=== PATIENT | female | born 1955 | race Caucasian/White ===

== ENCOUNTER 2024-11-07 20:01 | Inpatient (IN) | payer MEDICARE, OTHER, SELFPAY ==
[2024-11-07 11:30] VITALS: BP 133/88
[2024-11-07 11:45] LABS: % Basophils 0.7 % (0-2); % Eosinophils 1.3 % (0-6); % Immature Granulocytes 0.3 % (0-0.5); % Lymphocytes 16.4 % (20.5-51.1); % Monocytes 4.9 % (1.7-9.3); % Neutrophils 76.4 % (42.2-75.2); Absolute Basophils 0.1 10^3/uL (0-0.2); Absolute Eosinophils 0.1 10^3/uL (0-0.7); Absolute Lymphocytes 1.4 10^3/uL (1.2-3.4); Absolute Monocytes 0.4 10^3/uL (0.1-0.6); Absolute Neutrophils 6.7 10^3/uL (1.4-6.5); Hematocrit 34.4 % (37.0-47.0); Hemoglobin 11.3 g/dL (12.0-16.0); Mean Corp Hgb Conc. 32.8 g/dL (33.0-37.0); Mean Corpuscular Hgb 30.7 pg (27.0-31.0); Mean Corpuscular Volume 93.5 fL (81.0-99.0); Mean Platelet Volume 10.5 fL (7.4-10.4); Nucleated Red Blood Cells % 0 %; Platelet Count 259 10^3/uL (130-400); Red Blood Cell Count 3.68 10^6/uL (4.20-5.40); Red Cell Dist. Width 13.5 % (11.5-14.5); White Blood Cell Count 8.8 10^3/uL (4.8-10.8)
[2024-11-07 12:02] LABS: ALT (SGPT) 29 U/L (0-35); AST (SGOT) 27 U/L (14-36); Albumin 4.5 g/dl (3.5-5.0); Alkaline Phosphatase 111 U/L (38-126); Blood Urea Nitrogen 27 mg/dl (7-17); Calcium 9.7 mg/dl (8.4-10.2); Carbon Dioxide 25 mmol/L (22-30); Chloride 103 mmol/L (98-107); Glucose 197 mg/dl (70-99); Potassium 4.9 mmol/L (3.5-5.1); Sodium 139 mmol/L (135-145); Total Bilirubin 0.6 mg/dl (0.2-1.3); Total Protein 7.1 g/dl (6.3-8.2); eGFR 54.06
[2024-11-07 12:10] LABS: Troponin I < 0.012 ng/ml
[2024-11-07] MEDS: MAALOX 40 PO (15:28)
--- NOTE | 2024-11-07 15:45 | ED.GENMED ---
History of Present Illness
General
Chief Complaint: Chest Pain
Source: patient
Exam Limitations: none
Time Seen by Provider: 11/07/24 13:45
Nursing documentation reviewed up to this point in time: agreed with
History of Present Illness
History of Present Illness:
Patient with history of GERD on Prilosec, presents to ED after waking up from sleep around 4 AM secondary to midsternal discomfort. Patient reports having had no symptoms when she went to sleep. Patient had pizza for dinner with vegetable
toppings. Chest discomfort described as pressure, nonradiating, without any exacerbating or alleviating factors. Denies nausea or vomiting. Denies shortness of breath. Denies dizziness. Denies recent change in medications or diet. Denies
recent illness. Denies previous history of similar symptoms. As patient is diabetic, patient reports having had muffins prior to administering insulin, which made her symptoms worse.
Review of Systems
Review of Systems
Allergies reviewed?: Yes
All Other Systems: ROS reviewed and negative except as documented in HPI and ROS
Constitutional: Reports no symptoms; Denies fever
EENT: Reports no symptoms
Respiratory: Reports no symptoms; Denies trouble breathing
Cardiac: Reports chest pain
ABD/GI: Reports abdominal pain; Denies vomiting or diarrhea
: Reports no symptoms
Musculoskeletal: Reports no symptoms
Skin: Reports no symptoms
Neurological: Reports no symptoms
Phy Exam
Physical Exam
Physical Exam:
Physical Exam
General: no apparent distress, not acutely ill. afebrile
Head: nc/at. eomi
Neck: supple. no meningeal signs
Heart: s1/s2 regular rate and rhythm, no murmur.
Lungs: no acute respiratory distress. clear bilaterally. chest wall nontender to palpation.
Abdomen: normal bowel sounds. mild epigastric tenderness to palpation.
Neuro: alert and oriented x 3. no focal neurological deficits
Skin: no rash
Psychiatric: well kept. interactive and cooperative
Extremities: no edema. no calf tenderness.
Scores
Heart Score for Chest Pain Patients
STEMI patient?: Not applicable
Course
Orders/Labs/Results
Orders:
Orders
11/07/24 11:32
Electrocardiogram (*1) Urgent
Reason for Study: Chest Pain
EKG- Treatment ONCE
11/07/24 11:36
Complete Blood Count/With Diff Urgent
Comprehensive Metabolic Panel Urgent
Lipase Urgent
Comment: ADD ON
Troponin I Urgent
11/07/24 Dinner
NPO
Allow oral meds: Yes
Allow clear liquids: No
11/07/24 15:22
Mag Hydrox/Al Hydrox/Simeth [Maalox] 30 ml Phenobarb/Hyoscy/Atropine/Scop [] 10 ml PO NOW
US Abdomen Complete/Upper Urgent
Comment:
Reason For Exam: epigastric pain
11/07/24 15:26
Mag Hydrox/Al Hydrox/Simeth [Maalox] 30 ml .ROUTE .STK-MED ONE
Phenobarb/Hyoscy/Atropine/Scop [] 10 ml .ROUTE .STK-MED ONE
11/07/24 17:50
0.9% Sodium Chloride 500 ml [Nss] 500 ml IV BOLUS
HYDROmorphone [Dilaudid] 0.5 mg IV NOW STA
Piperacillin/Tazo 3.375 Gram [Zosyn] 3.375 gram in 50 ml IV NOW
11/07/24 19:28
Admit/Transfer Patient As Directed
Co-Sign Provider:
Level of Care: Inpatient admission
Assign to:: Medical/Surgical
Physician / Group: Vladislav Laurent
Diagnosis: Acute calculus cholecystitis
Reason for Hospitalization: Acute calculus cholecystitis
Expected length of stay greater than two midnights?: Yes
ELOS- Estimated Length of Stay in days: 3
I certify the patient meets the requirements for IP care: Yes
PRN Pain Medication Management As Directed
May give lesser potent ordered pain med per pt: Yes
preference::
Protocol:: Medication orders for pain may be administered in a
manner that supports deferring to patient preference
when the pt is:
- Requesting an ordered lesser potent pain medication.
Least to most potent pain medications are defined
as: acetaminophen < NSAID < tramadol < opioids
(morphine, oxycodone, hydromorphone).
- Requesting a lesser dose of the same medication IF
ORDERED.
- Requesting a less intrusive route of administration
if both routes are prescribed by the provider (PO <
IV).
11/07/24 19:31
Code Status As Directed
Resuscitation Status: Full Code
11/07/24 22:10
0.9% Sodium Chloride 1000 ml [Nss] 1,000 ml IV 80 mls/hr
Acetaminophen [Tylenol] 650 mg PO Q4HPRN PRN
HYDROmorphone [Dilaudid] 0.5 mg IV Q2HPRN PRN
Ondansetron Injectable [Zofran] 4 mg IV Q6HPRN PRN
Rosuvastatin Calcium [Crestor] 10 mg PO HS
11/07/24 22:10
SURGICAL CONSULT Routine
Consulting Provider: Bartolo Good
Was physician already notified: Yes
Activity As Directed
Activity Level: Out of Bed-Early Mobility
Intake/ Output As Directed
Frequency: Per unit guidelines
Pneumatic Compression Sleeves As Directed
Type: Knee high
Vital Signs As Directed
Frequency: Per unit guidelines
Weight As Directed
Frequency: Once
DX Deep Vein Thrombosis Video Routine
11/08/24 06:00
Complete Blood Count/No Diff IN AM
Comprehensive Metabolic Panel IN AM
11/08/24 08:00
Aspirin Low Dose EC [Aspir Low (Enteric Coated)] 81 mg PO DAILY
Losartan [Cozaar] 100 mg PO DAILY
Abnormal Lab Results
11/07/24 11/07/24
11:36 18:23
RBC 3.68 L 10^6/uL
(4.20-5.40)
Hgb 11.3 L g/dL
(12.0-16.0)
Hct 34.4 L %
(37.0-47.0)
MCHC 32.8 L g/dL
(33.0-37.0)
MPV 10.5 H fL
(7.4-10.4)
Absolute Neuts (auto) 6.7 H 10^3/uL
(1.4-6.5)
Neutrophils % 76.4 H %
(42.2-75.2)
Lymphocytes % 16.4 L %
(20.5-51.1)
BUN 27 H mg/dl
(7-17)
Creatinine 1.1 H mg/dL
(0.6-1.0)
Glucose 197 H mg/dl
(70-99)
POC Glucose 112 H mg/dl
(70-99)
11/07/24 11:36
11/07/24 11:36
Vital Signs
Initial and Last Documented VS:
Initial Vital Signs
Temp Pulse Resp BP Pulse Ox
97.5 F 85 18 133/88 99
11/07/24 11:30 11/07/24 11:30 11/07/24 11:30 11/07/24 11:30 11/07/24 11:30
Last Documented Vital Signs
Temp Pulse Resp BP Pulse Ox
98.0 F 86 18 156/70 97
11/07/24 23:00 11/07/24 23:00 11/07/24 23:00 11/07/24 23:00 11/07/24 23:00
MDM/Problems Addressed
MDM/Problems Addressed:
US abdomen report reviewed with on-call surgery, , who recommends admission on hospitalist service for further workup, including starting abx, zosyn.
*Critical Care Note
Total Time (30-74mins, 75-104mins- exclusive of procedures): Not Applicable
ED Attending Note
-
Portions of this chart may have been created with voice recognition software.� Occasional wrong word or��sound alike� substitutions may have occurred due to the inherent limitations of voice recognition software.
Discharge Plan
Departure
Patient Disposition: Admit
Date of Disposition: 11/07/24
Time of Disposition: 17:52
Admit to: Med/Surg
Presentation/result/management discussed w/ accepting MD/DO: Hospitalist
Discharge Problem:
Acute cholecystitis
Interventions
Interventions:
*Risk Screen - Suicide Last Done: 11/07/24 11:30
*General Assessment Last Done: 11/07/24 11:30
*Neglect/Abuse Screening Last Done: 11/07/24 11:30
*ED COVID-19 Vaccine History Last Done: 11/07/24 11:30
*Nursing Disposition Last Done: 11/07/24 22:04
ED- Cardiac Assessment Last Done: 11/07/24 14:55
Discharge Date and Time
Discharge Date/Time: 11/07/24 22:04
[2024-11-07 16:27] LABS: Lipase 72 U/L (23-300)
[2024-11-07 17:17] VITALS: BP 167/87
[2024-11-07] MEDS: DILAUDID 0.5 MG IV (17:55)
[2024-11-07] MEDS: ZOSYN 50 IV (17:55)
[2024-11-07] MEDS: NSS 500 IV (17:56)
[2024-11-07 18:24] LABS: Glucose - Point of Care 112 mg/dl (70-99)
--- NOTE | 2024-11-07 18:35 | HPS.HSE ---
Family Physician
-
Family Physician: Kinza Wilkes
Chief Complaint
-
GERD
History of Present Illness
Patient is a 68-year-old female with past medical history significant for hypertension, hyperlipidemia, GERD, chronic kidney disease II and DM II who presented to [facility] ED for evaluation of midsternal chest discomfort that woke her from a sleep
at approximately 0430 and has not alleviated. Patient states this is first time shes ever experienced this and reports it does not radiate. She denies any fever, chills, nausea, vomiting, constipation, diarrhea or urinary symptoms.
Medical History
Past Medical History
Past Medical History: Reports Other
Additional Past Medical History:
hypertension
hyperlipidemia
GERD
DM II
chronic kidney disease II
Past Surgical History: Reports Other
Additional Past Surgical History:
elbow fx repair
cataract extraction
oral surgery
Social History
Tobacco: Non-smoker
Alcohol: Occasional
Drug: None
Personal: Partner
Living: With Roomate (with partner)
Employment: Retired
Family History
Family History: Not pertinent
Allergies / Home Medications
Allergies reflects when Allergies were last updated in [email or web address].
Home Medications with original date entered in [email or web address]
Allergy/Medication List:
Allergies
Allergy/AdvReac Type Severity Reaction Status Date / Time
No Known Allergies Allergy Unverified 11/07/24 11:32
Home Medications
aspirin 81 mg tablet,delayed release 81 mg PO DAILY 11/07/24
insulin glargine 100 unit/mL (3 mL) subcutaneous pen (Lantus Solostar U-100 Insulin) 46 unit SC DAILY 11/07/24
insulin lispro 100 unit/mL subcutaneous pen (Humalog KwikPen (U-100) Insulin) 0 sliding scale dose SC AC 11/07/24
losartan 100 mg tablet 100 mg PO DAILY 11/07/24
metformin 1,000 mg tablet 1,000 mg PO DAILY 11/07/24
metformin 1,000 mg tablet 500 - 1,000 mg PO QPM 11/07/24
rosuvastatin 10 mg tablet 10 mg PO HS 11/07/24
Review of Systems
-
History Source: Patient
A 12 point ROS was completed and negative except as noted: Yes
Constitutional: Reports Sleep Disturbance
EENT: Reports No Symptoms
Respiratory: Reports No Symptoms
Cardiac: Reports No Symptoms
Abdomen/GI: Reports Other (midsternal discomfort with epigastric discomfort )
: Reports No Symptoms
Musculoskeletal: Reports No Symptoms
Skin: Reports No Symptoms
Neurological: Reports No Symptoms
Endocrine: Reports No Symptoms
Hematologic/Lymphatic: Reports No Symptoms
Psych: Reports No Symptoms
Physical Exam
Vital Signs
Vital Signs
Temp Pulse Resp BP Pulse Ox
97.5 F 80 22 167/87 99
11/07/24 11:30 11/07/24 17:30 11/07/24 17:30 11/07/24 17:17 11/07/24 15:15
Physical Exam
General: Well Developed, Well Nourished, No Apparent Distress, Comfortable, Conversant and Morbidly Obese
HEENT: NormoCephalic, Moist mucous membranes, Atraumatic, PERRLA, [place] Conjunctivae, Nose Appears Normal and Ears Appear Normal
Respiratory: Clear and Non Labored Respirations
Cardiac: S1/S2 and Regular Rhythm; No Murmur, Rub or Gallop
Breast: Deferred by me
GI: Soft, Non Tender, Non Distended and Normal Bowel Sounds; No Organomegaly
Rectal: Deferred by Provider
Genito-urinary: Deferred by me
Musculoskeletal: No Clubbing, No Cyanosis and No Edema
Skin: Warm and IV/Catheter Site; No Rash
Neuro: Awake, Alert, AO x 3 and Nonfocal/grossly intact
Hematologic/Lymphatic: No Lymphadenopathy
Psych: Calm and Intact Judgment/Insight
Laboratory Results
-
11/07/24 11:36
11/07/24 11:36
Laboratory Results
Total Bilirubin 0.6 mg/dl (0.2-1.3) 11/07/24 11:36
AST 27 U/L (14-36) 11/07/24 11:36
ALT 29 U/L (0-35) 11/07/24 11:36
Alkaline Phosphatase 111 U/L (38-126) 11/07/24 11:36
Troponin I < 0.012 ng/ml 11/07/24 11:36
Lipase 72 U/L (23-300) 11/07/24 11:36
Data Reviewed
-
Ultrasound: Report Reviewed by me (Abd: 1. Cholelithiasis, gallbladder distention, and diffuse gallbladder wall thickening suggesting ACUTE CALCULUS CHOLECYSTITIS. 2. No sonographic evidence for biliary obstruction. 3. Moderate diffuse liver
disease (probably diffuse hepatic steatosis). )
Medical Tests (Nuc Med, Echo, EKG etc): Discussed with Physician (EKG: NORMAL SINUS RHYTHM WITH SINUS ARRHYTHMIA)
Lab Data: Labs Reviewed by me
Impression/Plan
-
IMPRESSION/PLAN:
#Acute calculus cholecystitis
Abd US: 1. Cholelithiasis, gallbladder distention, and diffuse gallbladder wall thickening suggesting ACUTE CALCULUS CHOLECYSTITIS.
2. No sonographic evidence for biliary obstruction.
3. Moderate diffuse liver disease (probably diffuse hepatic steatosis).
- Admit to med/surg
- consult surgery
- IVF
- Zosyn
- pain regimen
- antiemetics
#benign hypertension
- continue losartan
#hyperlipidemia
- continue rosuvastatin
#DM II
- AccuChecks AC & HS
- SSI
- hold Lantus
- hold metformin
#chronic kidney disease II
BUN 27, Creat 1.1
#GERD
Code Status: Full Code
DVT Prophylaxis: SCDs
[2024-11-07 19:00] VITALS: BP 173/68
--- NOTE | 2024-11-07 19:27 | W.PN.UPDATE ---
Update Note
Progress Note Update
This is an addendum to the H&P written by Lashanda Deras on 11/07/2024. Patient seen and examined independently with NIGHT SHIFT MANAGER.
68-year-old female past medical history of GERD, diabetes, hypertension, hyperlipidemia, presenting with midsternal discomfort fibrous pressure nonradiating. No nausea or vomiting. No shortness of breath.
She is tender in the epigastric region. Some tenderness in the right upper quadrant with deep palpation.
Abdominal ultrasound shows cholelithiasis, diffuse gallbladder wall thickening suggesting acute calculus cholecystitis. Labs unremarkable apart from mild HIRAM.
N.p.o., IV fluids. Zosyn. General surgery consulted. Hold metformin and Lantus for now. Insulin sliding scale. Can introduce reduced dose of Lantus if she becomes hyperglycemic later.
[2024-11-07 20:00] VITALS: BP 154/48
[2024-11-07] MEDS: NSS 1000 IV (22:29)
[2024-11-07] MEDS: TYLENOL 650 MG PO (22:30)
[2024-11-07] MEDS: CRESTOR 10 MG PO (22:30)
[2024-11-07 23:00] VITALS: BP 156/70
[2024-11-08] VITALS (10 sets, daily range): BP systolic 104–162; BP diastolic 53–92
[2024-11-08] LABS: Glucose - Point of Care 168 mg/dl (70-99)
[2024-11-08 06:36] LABS: Glucose - Point of Care 119 mg/dl (70-99)
[2024-11-08 08:41] LABS: ALT (SGPT) 31 U/L (0-35); AST (SGOT) 37 U/L (14-36); Albumin 4.3 g/dl (3.5-5.0); Alkaline Phosphatase 115 U/L (38-126); Blood Urea Nitrogen 19 mg/dl (7-17); Calcium 9.2 mg/dl (8.4-10.2); Carbon Dioxide 24 mmol/L (22-30); Chloride 104 mmol/L (98-107); Glucose 124 mg/dl (70-99); Sodium 139 mmol/L (135-145); Total Bilirubin 0.7 mg/dl (0.2-1.3); Total Protein 6.8 g/dl (6.3-8.2); eGFR > 60.00
[2024-11-08] MEDS: NOVOLOG FLEXPEN-LOW RESISTANCE SC ×2 (08:51→11:30)
[2024-11-08] MEDS: ASPIR LOW (ENTERIC COATED) 81 MG PO (08:52)
[2024-11-08] MEDS: COZAAR 100 MG PO (08:52)
--- NOTE | 2024-11-08 08:52 | CON.GS ---
Medical History
-
Chief Complaint: GERD/substernal chest pain
History of Present Illness:
Patient is a 68-year-old female who was in her usual baseline state of health until she awoke yesterday at approximately 4:30 AM with substernal chest pain/pressure. It persisted through the morning hours with some mild associated anorexia/nausea
prompting emergency department evaluation yesterday. Persistent 'heartburn' discomfort today and radiation of pain into the central back area. Appetite still suppressed. No vomiting. No recent change in bowels.
Past Medical History
Past Medical History: Other (Hypertension, hyperlipidemia, GERD, DM type II, CKD type II)
Past Surgical History: Other (Elbow fracture, cataracts, oral surgery)
Social History
Tobacco: Non-Smoker
Alcohol: Occasional
Personal: Partner
Living: With Roomate
Employment: Retired
Allergies / Home Medications
Allergy/AdvReac Type Severity Reaction Status Date / Time
No Known Allergies Allergy Unverified 11/07/24 11:32
�Medication �Instructions �Recorded �Confirmed �Type
aspirin 81 mg tablet,delayed 81 mg PO DAILY 11/07/24 11/07/24 History
release
insulin glargine 100 unit/mL (3 46 unit SC DAILY 11/07/24 11/07/24 History
mL) subcutaneous pen (Lantus
Solostar U-100 Insulin)
insulin lispro 100 unit/mL 0 sliding scale dose SC AC 11/07/24 11/07/24 History
subcutaneous pen (Humalog KwikPen
(U-100) Insulin)
losartan 100 mg tablet 100 mg PO DAILY 11/07/24 11/07/24 History
metformin 1,000 mg tablet 1,000 mg PO DAILY 11/07/24 11/07/24 History
metformin 1,000 mg tablet 500 - 1,000 mg PO QPM 11/07/24 11/07/24 History
rosuvastatin 10 mg tablet 10 mg PO HS 11/07/24 11/07/24 History
Review of Systems
-
A 10 point review of systems was completed, and was negative except as per HPI.
Physical Exam
Vital Signs
Temp Pulse Resp BP Pulse Ox
98.0 F 81 14 161/76 99
11/08/24 07:32 11/08/24 07:32 11/08/24 07:32 11/08/24 07:32 11/08/24 07:32
11/07/24 11/08/24 11/09/24
06:59 06:59 06:59
Actual Weight 122.47 kg
Lab Results
11/08/24 06:38
WBC 8.8 10^3/uL (4.8-10.8) 11/07/24 11:36
Hgb 11.3 g/dL (12.0-16.0) L 11/07/24 11:36
Hct 34.4 % (37.0-47.0) L 11/07/24 11:36
Plt Count 259 10^3/uL (130-400) 11/07/24 11:36
Abs Immat Gran (auto) 0.0 10^3/uL (0-0.05) 11/07/24 11:36
Neutrophils % 76.4 % (42.2-75.2) H 11/07/24 11:36
Physical Exam
General: Well Developed, Well Nourished, No Apparent Distress and Comfortable
HEENT: Normocephalic, Anicteric and Moist Mucous Membranes
Respiratory: Non Labored Respirations
GI: Soft, Non Distended and Tender (Epigastrium and right upper quadrant with voluntary guarding in the right upper quadrant on deep palpation)
Skin: Warm and Dry
Neuro: AO x 3
Psych: Calm
Assessment / Plan
-
Assessment: 68-year-old female with probable acute calculus cholecystitis -with resultant intractable epigastric abdominal pain/localizing right upper quadrant tenderness.
Ultrasound imaging personally reviewed confirms multiple shadowing gallstones, gallbladder distention, diffuse wall thickening and edema. LFTs only notable for slight elevation of AST today. Lipase was normal in the emergency department testing.
Troponin negative.
Reviewed with patient indications for cholecystectomy in the setting of persistent symptoms and probable cystic duct obstruction with resultant acute calculus cholecystitis. We discussed alternative treatment options as well. Patient in agreement
to proceed with a laparoscopic cholecystectomy possible intraoperative cholangiogram. Anticipated operative procedure was fully reviewed in detail including the operative technique utilizing a diagram and drawling. We discussed potential benefits
and risks such as but not limited to bleeding, infectious and wound related complications, iatrogenic injury to surrounding structures, bile duct injury, postop bile leak, postcholecystectomy syndrome/fatty food intolerances. We discussed the
typical postoperative recovery pending operative findings.
Any of the patient's concerns or questions were fully addressed and written informed consent was obtained.
Plan: Patient is on the add on OR schedule for lap vidhya possible cholangiogram today -await room availability
N.p.o.
IV fluids
Reordered/continue Zosyn -initial given emergency department 11/07/2024
[2024-11-08] MEDS: TYLENOL 650 MG PO (08:58)
[2024-11-08 09:10] LABS: Hematocrit 34.3 % (37.0-47.0); Hemoglobin 11.6 g/dL (12.0-16.0); Mean Corp Hgb Conc. 33.8 g/dL (33.0-37.0); Mean Corpuscular Volume 91.7 fL (81.0-99.0); Platelet Count 204 10^3/uL (130-400); Red Blood Cell Count 3.74 10^6/uL (4.20-5.40); Red Cell Dist. Width 13.4 % (11.5-14.5); White Blood Cell Count 9.6 10^3/uL (4.8-10.8)
[2024-11-08 09:37] LABS: Glycohemoglobin (HgbA1c) 7.2 % (4.0-5.6)
--- NOTE | 2024-11-08 09:48 | CM ---
CM reviewed medical records. Patient for OR today. CM will remain available as needed.
[2024-11-08] MEDS: ZOSYN 50 IV ×3 (10:33→22:07)
[2024-11-08] MEDS: NSS 1000 IV (10:39)
--- NOTE | 2024-11-08 10:52 | W.PN.HOSP.TC ---
Today's Communication/Plan
-
Assessment / Plan
Assessment / Plan
Acute calculus cholecystitis
-N.p.o.
-IV antibiotics
-Plan for OR with surgery later today
Diabetes
-Hold long-acting insulin
-Continue sliding scale
-N.p.o.
-Postoperative can start carb controlled diet and initiate Lantus
Hyperlipidemia
-Continue statin
Anticipated Discharge: 24 - 48 hours
Subjective/Interval History
-
Date of Service: November 08, 2024
seen and examined
ruq pain resolved, but now with back pain
no nv
Objective Data
-
Labs:
Laboratory Results
11/08/24
06:38
WBC 9.6
Hgb 11.6 L
Hct 34.3 L
Plt Count 204 D
Sodium 139
Potassium 4.0
Chloride 104
Carbon Dioxide 24
BUN 19 H
Creatinine 0.9
Glucose 124 H
Calcium 9.2
Total Bilirubin 0.7
AST 37 H
ALT 31
Alkaline Phosphatase 115
Vital Signs:
Vital Signs
Temp Pulse Resp BP Pulse Ox
98.0 F 81 14 161/76 99
11/08/24 07:32 11/08/24 07:32 11/08/24 07:32 11/08/24 07:32 11/08/24 07:32
I&O
11/07/24 11/08/24 11/09/24
06:59 06:59 06:59
Intake Total 720 / 720
Balance 720 / 720
Physical Exam
-
General: Well Developed and Well Nourished
HEENT: Normocephalic and Atraumatic
Respiratory: Clear to Auscultation
Cardiac: Regular Rhythm
GI: Soft, Nondistended, Normal Bowel Sounds and Tender (RUQ on deep palpation)
Neuro: Awake, Alert, Oriented and AO x 3
Psych: Calm
--- NOTE | 2024-11-08 12:42 | W.SUR.PREOP ---
Pre-Operative Surgical Note
-
I have examined this patient prior to the performance of the scheduled procedure.
The patient's condition is unchanged from the time of the current History and
Physical and the patient is able to undergo the scheduled procedure.
--- NOTE | 2024-11-08 14:26 | W.IMMPOSTOP ---
Addendum entered and electronically signed by Rei Villarreal MD 11/08/24 14:47:
#[id number]
Original Note:
Surgical Immed Post Op Note
-
Primary Surgeon: Rei Villarreal MD
Assisting Surgeon: Axel Simms MD PGY 1
Pre-op Diagnosis: Acute calculus cholecystitis
Post-op Diagnosis: Acute calculus cholecystitis with cystic duct obstruction/hydrops
Procedure Performed: Laparoscopic cholecystectomy
Anesthesia Type: GETA +0.25% Marcaine
Specimen / Cultures: Gallbladder/none
Estimated Blood Loss: 8 mL
Complications: None immediate
Operative Findings: Tensely distended gallbladder filled with stones. Significant wall thickening and edema. Hydropic bile noted on cyst needle aspiration confirming cystic duct obstruction. Cystic artery anterior and posterior branches
individually controlled with hemoclips. Cystic duct isolated and controlled with 3 proximal hemoclips. Gallbladder removed off liver bed intact.
Plan: Resume low-fat diabetic diet as tolerated postoperatively
Continue Zosyn overnight but no further antibiotics after tomorrow
Probable DC home tomorrow
[2024-11-08 14:41] LABS: Glucose - Point of Care 233 mg/dl (70-99)
[2024-11-08] MEDS: NOVOLOG vial 100 UNITS SC (14:48)
--- NOTE | 2024-11-08 15:40 | PTCARENOTE ---
Received patient at 1540 from PACU. Patient AAOx3, no c/o pain, tolerating sips of clear liquids. Patient with 5 lap sites CDI, call rosado in reach.
--- NOTE | 2024-11-08 17:52 | PTCARENOTE ---
Patient OOB with supervision. Patient voided in bathroom without difficulty. Patient requesting attends, stating, 'The doctor told me I could have diarrhea after surgery.'
[2024-11-08 17:58] LABS: Glucose - Point of Care 232 mg/dl (70-99)
[2024-11-08] MEDS: NOVOLOG FLEXPEN-LOW RESISTANCE 2 UNITS SC (18:11)
[2024-11-08 19:18] LABS: Hepatitis C Antibody Negative (Negative)
[2024-11-08 21:49] LABS: Glucose - Point of Care 245 mg/dl (70-99)
[2024-11-08] MEDS: CRESTOR 10 MG PO (22:07)
[2024-11-09] MEDS: NSS IV ×2 (00:50→12:56)
[2024-11-09 03:41] VITALS: BP 124/60
[2024-11-09] MEDS: ZOSYN 50 IV ×2 (04:09→11:04)
[2024-11-09 08:00] VITALS: BP 140/71
[2024-11-09] MEDS: COZAAR 100 MG PO (08:13)
[2024-11-09] MEDS: ASPIR LOW (ENTERIC COATED) 81 MG PO (08:13)
[2024-11-09] MEDS: NOVOLOG FLEXPEN-LOW RESISTANCE 1 UNITS SC (08:21)
[2024-11-09 08:31] LABS: Glucose - Point of Care 176 mg/dl (70-99)
--- NOTE | 2024-11-09 08:56 | W.PN.GS2 ---
Today's Communication / Plan
-
dispo planning
Assessment / Plan
-
68 yo female with a h/o DM presenting with ACC now POD #1 Lap vidhya
AFVSS
Following expected post op course
Labs for today pending
--Tolerating diet
--analgesics prn, patient declining narcotics
--OOB/Ambulate
--Updated d/c instructions and reviewed with patient
--Clear from surgical standpoint for discharge
Subjective Data
-
Date of Service: November 09, 2024
Patient seen and examined at bedside with Dr. Philip. Echavarria n/v. Tolerating diet. Minimal post op discomfort.
Objective Data
-
Intake and Output
11/08/24 11/09/24 11/10/24
06:59 06:59 06:59
Intake Total 720 / 720 1005 / 1005
Balance 720 / 720 1005 / 1005
Intake:
IV fluids (Total) 720 / 720 955 / 955
normosol 50 / 50
IV piggybacks 50 / 50
Other:
Number of approximated MODERATE 1
amounts of urine
Number of approximated LARGE 2 1
amounts of urine
Vital Signs
Temp Pulse Resp BP Pulse Ox
98.6 F 81 18 140/71 96
11/09/24 08:00 11/09/24 08:00 11/09/24 08:00 11/09/24 08:13 11/09/24 08:00
Calcium 9.2 mg/dl (8.4-10.2) 11/08/24 06:38
Total Bilirubin 0.7 mg/dl (0.2-1.3) 11/08/24 06:38
AST 37 U/L (14-36) H 11/08/24 06:38
ALT 31 U/L (0-35) 11/08/24 06:38
Alkaline Phosphatase 115 U/L (38-126) 11/08/24 06:38
Total Protein 6.8 g/dl (6.3-8.2) 11/08/24 06:38
Albumin 4.3 g/dl (3.5-5.0) 11/08/24 06:38
Physical Exam
-
NAD
ABD soft, NT, ND
Incisions well approximated without erythema, intact glue
[2024-11-09 09:05] LABS: Hematocrit 32.8 % (37.0-47.0); Hemoglobin 11.3 g/dL (12.0-16.0); Mean Corp Hgb Conc. 34.5 g/dL (33.0-37.0); Mean Corpuscular Hgb 31.5 pg (27.0-31.0); Mean Corpuscular Volume 91.4 fL (81.0-99.0); Mean Platelet Volume 11.3 fL (7.4-10.4); Platelet Count 209 10^3/uL (130-400); Red Blood Cell Count 3.59 10^6/uL (4.20-5.40); Red Cell Dist. Width 13.6 % (11.5-14.5)
[2024-11-09 09:23] LABS: Blood Urea Nitrogen 22 mg/dl (7-17); Carbon Dioxide 27 mmol/L (22-30); Chloride 100 mmol/L (98-107); Estimated Creatinine Clearance 60 ml/min; Glucose 190 mg/dl (70-99); Potassium 4.9 mmol/L (3.5-5.1); Sodium 137 mmol/L (135-145)
[2024-11-09 12:00] VITALS: BP 144/74
[2024-11-09 12:32] LABS: Glucose - Point of Care 256 mg/dl (70-99)
[2024-11-09] MEDS: NOVOLOG FLEXPEN-LOW RESISTANCE 3 UNITS SC (12:38)
--- NOTE | 2024-11-09 12:43 | W.PN.HOSP.TC ---
Addendum entered and electronically signed by Colby Lala MD 11/19/24 15:56:
HIRAM
Original Note:
Today's Communication/Plan
-
More than 30 minutes spent in discharge including
Final examination of the patient
Summarizing hospital stay
Instructions for continuing care to all relevant caregivers
Preparation of discharge records, prescriptions, and referral forms
Total time spent (in minutes): 33mins
Assessment / Plan
Assessment / Plan
Acute calculus cholecystitis
-S/p lap vidhya
Diabetes
-Hold long-acting insulin
-Continue sliding scale
-CCDiet
-Postoperative can start carb controlled diet and initiate Lantus
Hyperlipidemia
-Continue statin
Anticipated Discharge: Today
Subjective/Interval History
-
Date of Service: November 09, 2024
seen and examined. no new complaints.
tolerated lap vidhya well
Objective Data
-
Labs:
Laboratory Results
11/09/24
08:43
WBC 11.0 H
Hgb 11.3 L
Hct 32.8 L
Plt Count 209
Sodium 137
Potassium 4.9
Chloride 100
Carbon Dioxide 27
BUN 22 H
Creatinine 1.2 H
Glucose 190 H
Calcium 9.0
Vital Signs:
Vital Signs
Temp Pulse Resp BP Pulse Ox
98.6 F 81 18 140/71 96
11/09/24 08:00 11/09/24 08:00 11/09/24 08:00 11/09/24 08:13 11/09/24 08:00
I&O
11/08/24 11/09/24 11/10/24
06:59 06:59 06:59
Intake Total 720 / 720 1005 / 1005
Balance 720 / 720 1005 / 1005
Physical Exam
-
General: Well Developed and Well Nourished
HEENT: Normocephalic and Atraumatic
Respiratory: Clear to Auscultation
Cardiac: Regular Rhythm and S1/S2
GI: Soft, Nontender and Nondistended
Neuro: Awake, Alert, Oriented and AO x 3
--- NOTE | 2024-11-09 12:47 | W.DCSUMMARY ---
Discharge Summary
Discharge Data
Date of Admission: 11/07/24
Date of Discharge: 11/09/24
-
Pending Results: No
Hospital Course
68 female history of hypertension diabetes GERD, chronic kidney disease 2, presented with midsternal chest discomfort/epigastric area that woke her up from her sleep. Associated nausea and anorexia. Cardiac workup negative. Abdominal ultrasound
demonstrating cholelithiasis, gallbladder distention with diffuse gallbladder wall thickening suggestive of acute calculus cholecystitis. On 11/08/2024 was taken to the OR by general surgery for lap vidhya. Tolerated procedure well. Outpatient
follow-up with general surgery.
IMPRESSION:
1. Cholelithiasis, gallbladder distention, and diffuse gallbladder wall thickening suggesting ACUTE CALCULUS CHOLECYSTITIS.
2. No sonographic evidence for biliary obstruction.
3. Moderate diffuse liver disease (probably diffuse hepatic steatosis).
Discharge Plan
-
Patient Disposition: Home (Routine Discharge)
Discharge Diagnosis/Procedures: Acute calculus cholecystitis. Laparoscopic cholecystectomy
Condition: Good
Diet: As tolerated, Low Fat and Diabetic, Carb Controlled
Additional Diets: Smaller meals initially after surgery as abdominal bloating and distention are common for the first few days
Activity: No strenuous activity
Additional Activity: No lifting over 20 pounds for 3 to 4 weeks postop
Driving Restrictions: No driving 2 to 3 days or if using narcotics
Bathing Restrictions: OK to Shower
Wound Care: Glue at surgical sites typically peels off in 2 to 3 weeks
Activity Restrictions/Additional Instructions:
�Rei Villarreal MD [facility] General Surgery
[facility]
[address], [address]
[place] [address]
[phone]
Post-Operative Instructions for Gallbladder Surgery
The incision sites are sealed with a surgical glue dressing.� It is safe to shower at any time after surgery when the glue is dry.� Let shower water run over the incisions and then pat dry.
Glue dressing typically peels off in 2-3 weeks.
Abdominal/incisional pain and discomfort, shoulder/scapular pain, bloating, and mild nausea, as well as bruising/stiffness and swelling at the incision sites are common after surgery.� If felt to be excessive, notify us.
Please start postoperative pain management using over the counter medications such as Tylenol and Ibuprofen, per instructions on the bottle, as long as there are no medical reasons why you cannot take these medications.
Ice the incisions sites for 20 minutes every hour or so to help with postoperative incisional pain and reduce postoperative surgical site swelling.� Take care NOT to get an ice burn on the skin surface.
A warm heating pad is often helpful to alleviate shoulder/scapular back pains after laparoscopic procedures.� This pain typically dissipates 24-72hrs post op.
Transition to a low fat diet as tolerated after surgery if not experiencing postoperative nausea or significant bloating/distention.� Some fatty food intolerance may occur shortly after surgery (cramps,bloating, nausea,diarrhea with fat intake).
Constipation is common following surgery and postoperative narcotic use.� May use a stool softener such as Colace (100 mg 2x day) to prevent constipation
If no BM 24hrs after surgery, recommend starting daily Miralax
If no BM in 24-48hrs after starting Miralax --> recommend then using a dose of magnesium citrate or milk of magnesia with a Senokot tablet to help alleviate post operative constipation as long as there is no nausea/vomiting and passing gas.
Resume all preoperative medications as prescribed, unless directed otherwise.
Do not drive or drink alcohol for 24 hrs after having anesthesia or while taking narcotic pain medications.
Resume regular daily light activities, such as walking, standing and going up/down stairs as tolerated within 24hrs of surgery.� Please refrain from lifting over 20 lbs or strenuous exercise until postoperative follow up visit &/or approximately
3-4 weeks.�
Call the office with a fever above 101� F, nausea with vomiting, severe abdominal pain, yellowing of skin or eyes, spreading redness and drainage from incision sites or with any concerns/questions.
If not arranged prior to surgery, please call the office to schedule or confirm your 10-14 day postoperative surgical follow-up office visit with Dr. Villarreal.
Referrals:
Rei Villarreal MD [Active] - in two weeks
Kinza Wilkes DO [Family Provider] -
Prescriptions:
Continued
metformin 1,000 mg tablet
1,000 mg PO DAILY
losartan 100 mg tablet
100 mg PO DAILY
insulin lispro [Humalog KwikPen Insulin] 100 unit/mL insulin pen
0 sliding scale dose SC AC
rosuvastatin 10 mg tablet
10 mg PO HS
insulin glargine [Lantus Solostar U-100 Insulin] 100 unit/mL (3 mL) insulin pen
46 unit SC DAILY
aspirin 81 mg Tablet,Delayed Release (Dr/Ec)
81 mg PO DAILY
metformin 1,000 mg tablet
500 - 1,000 mg PO QPM
Patient Comments:
11/07/2024: Pt will take a half dose of metformin if her evening blood sugar is 'lower' to not lower blood sugar even more overnight
Discharge Orders:
Discharge Patient (As Directed); Ordered 11/09/24
Ordered By: Colby Lala
Discharge Date and Time
Print Language: TURKISH
--- NOTE | 2024-11-09 13:43 | CM ---
Plan: Discharge to home, no needs; spouse will provide transport
--- NOTE | 2024-11-12 16:03 | PN.CDI ---
CDI
- -
CDI:
Physician Documentation Request
Admit Date: 11/07/24 20:01
Dear Doctor,
Patient admitted with cholecystitis.
Laboratory Tests
11/08/24 11/09/24
06:38 08:43
Creatinine 0.9 1.2 H
Clarify which of the following accurately represents the patient's renal status:
____ - HIRAM
____ - Rise in creatinine
____ - Other
Criteria for HIRAM*
1 Increase in serum creatinine by > or = to 0.3 mg/dL (> or = to 26.5 micromol/L) within 48 hours, OR
2 Increase in serum creatinine to > or = to 1.5 times baseline, which is known or presumed to have occurred within 7 days, OR
3 Urine volume < 0.5 nL/kg/hour for six hours
Use of terms such as suspected, likely, concern for, or probable (associated with a specific diagnosis that is being evaluated, monitored, or treated as if it exists) are acceptable and can be coded in the inpatient setting, when documented at the
time of discharge.
Thank you,
Ca Christy RN, BSN
CDI Specialist
Available via [employer] text
Please use your independent medical judgment in providing your response.
*Source: Kidney Disease: Improving Global Outcomes (KDIGO) 2012
== END 2024-11-09 15:42 | disposition home or self-care (01) | DRG 418 ==
LOC: 1 ACUTE 20:01
PROVIDERS: Emergency Medicine; Nurse Practitioner Family; ADMITTING PHYSICIAN Hospitalist; ATTENDING PHYSICIAN Hospitalist; EMERGENCY PHYSICIAN Emergency Medicine; FAMILY PHYSICIAN Family Medicine; OTHER PHYSICIAN Surgery
PROC: 0FT44ZZ Resection of Gallbladder, Percutaneous Endoscopic Approach (ICD-10-PCS; 2024-11-08)
DX: K80.01 Calculus of gallbladder with acute cholecystitis with obstruction (principal); N17.9 Acute kidney failure, unspecified; K21.9 Gastro-esophageal reflux disease without esophagitis; E11.22 Type 2 diabetes mellitus with diabetic chronic kidney disease; I12.9 Hypertensive chronic kidney disease with stage 1 through stage 4 chronic kidney disease, or unspecified chronic kidney disease; K76.0 Fatty (change of) liver, not elsewhere classified; E78.5 Hyperlipidemia, unspecified; N18.9 Chronic kidney disease, unspecified; Z79.82 Long term (current) use of aspirin; Z79.84 Long term (current) use of oral hypoglycemic drugs; Z79.4 Long term (current) use of insulin
CPT/HCPCS: 88304; 76700; 80048; 80053; 82962; 83036; 83690; 84484; 85025; 85027; 86803; 93005; 96374; 96375; 99285